=== PATIENT | female | born 1995 | race Caucasian/White ===

== ENCOUNTER → 2021-08-06 12:06 | Outpatient (REF) | payer BC, SELFPAY | LOC: ANHLAB 12:06 | PROVIDERS: PCP Family Medicine; Visit Provider Nurse Practitioner | DX: D49.2 Neoplasm of unspecified behavior of bone, soft tissue, and skin (principal) | CPT/HCPCS: 88305 ==

== ENCOUNTER 2021-09-16 15:02 | Emergency (ER) | payer BC, SELFPAY ==
--- NOTE | 2021-09-16 15:12 | ED.FEMALEGU ---
HPI - Female Genitourinary General Chief complaint: Urogenital-Female Stated complaint: uti complaint Time Seen by Provider: 09/16/21 15:15 Source: patient and RN notes reviewed Mode of arrival: ambulatory Limitations: no limitations History of Present Illness HPI Narrative: 26-year-old female presents to the [facility] with right lower back pain. States it started yesterday. Patient is concerned that she has a UTI. States that she was seen by her primary care doctor several months ago and on a routine urine check she had bacteria and was told she had a UTI. Related Data Home Medications Medication Instructions Recorded Confirmed norethindrone acetate 1 mg-ethinyl 1 tablet PO DAILY 05/01/21 09/16/21 estradiol 20 mcg tablet ergocalciferol (vitamin D2) 50 mcg 50 mcg PO DAILY 08/06/21 09/16/21 (2,000 unit) tablet Allergies Allergy/AdvReac Type Severity Reaction Status Date / Time amoxicillin Allergy Intermediate swollen Verified 09/16/21 15:24 face ampicillin Allergy Unknown swollen Verified 09/16/21 15:24 face Review of Systems Review of Systems: All systems reviewed & are unremarkable except as noted in HPI and below Constitutional: Constitutional: Reports no additional constitutional complaints, Denies chills and Denies fatigue Eyes: Eyes: Reports no additional eye complaints ENT: Reports system reviewed and no additional complaints, except as documented Cardiovascular: Cardiovascular: Reports no additional cardiovascular complaints and Denies chest pain Respiratory: Respiratory: Reports no additional respiratory complaints, Denies cough, Denies dyspnea and Denies wheezing Gastrointestinal: Gastrointestinal: Reports no additional gastrointestinal complaints, Denies abdominal pain, Denies nausea and Denies vomiting Genitourinary: Genitourinary: Reports no additional female genitourinary complaints, Denies nocturia, Denies dysuria, Denies flank pain and Denies urinary incontinence Musculoskeletal: Musculoskeletal: Reports as per HPI and Reports back pain (Right lower) Integumentary/Breasts: Skin/Breast: Reports system reviewed and no additional complaints, except as docu Neurologic: Reports system reviewed and no additional complaints, except as documented Psychiatric: Psychiatric: Reports no additional psychiatric complaints Allergic/Immunologic: Allergic/Immunologic: Reports no additional allergic/immunologic complaints PMFSH Past Medical History Medical History COVID-19 Social History Social History Smoking status: Never smoker Second hand tobacco smoke exposure: No Alcohol intake: current Drinks per week: 1 Substance use: never Substance use type: does not use Comments At the time of my signature, I reviewed and agree with the nursing past medical, surgical, social, and family history. There is no relevant family history pertinent to the patient complaint. Exam Const: General: healthy appearing, no acute distress and alert Nutritional Appearance: well nourished Orientation/consciousness: patient oriented x3 Limitations: no limitations HENMT: Head: normal to inspection Ears: external ears normal Eyes: Pupils: Equal, round and reactive pupils present Neck: Neck: normal visual inspection, no lymphadenopathy and no meningeal signs Chest: Chest palpation & inspection: normal inspection of the chest Resp: Effort & Inspection: normal respiratory effort Auscultation: clear to auscultation bilaterally Cardio: Rate: regular rate Rhythm: regular rhythm GI: GI Palp: Yes Soft to palpation, No Tenderness to palpation present (GI), No Guarding due to palpation present (GI) and No Rebound tenderness present : General: Yes no CVA tenderness Back/Spine/Pelvis: Back: no CVA tenderness Other: Pain is not reproducible with palpation of the lower back, hips, pelvis.
[2021-09-16 15:17] VITALS: BP 134/82; PULSE 77; RESP 18; TEMP 36.6; O2SAT 100
== END 2021-09-16 15:43 | disposition home or self-care (01) ==
PROVIDERS: Emergency Provider Nurse Practitioner; PCP Family Medicine
DX: M54.50 Low back pain, unspecified (principal); Z86.16 Personal history of COVID-19
CPT/HCPCS: 81003; 81025; 87086; 99213; G0463

== ENCOUNTER → 2023-10-16 07:43 | Outpatient (CLI) | payer BC, SELFPAY ==
--- NOTE | ~2023-10-16 | US_ITS ---
US breast RT limited INDICATION: Palpable right breast abnormality TECHNIQUE: Dedicated Limited right breast ultrasound COMPARISON: No prior studies for comparison. FINDINGS: The right breast is composed of normal heterogeneous echotexture without focal solid or cys tic mass. IMPRESSION: 1: Normal limited right breast ultrasound. BI-RADS CATEGORY 1 - NEGATIVE Reviewed, dictated and finalized at location A. 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
== END ==
PROVIDERS: PCP Family Medicine; Visit Provider Obstetrics & Gynecology Gynecology
DX: N63.10 Unspecified lump in the right breast, unspecified quadrant (principal)
CPT/HCPCS: 76642

== ENCOUNTER → 2023-12-01 14:15 | Outpatient (CLI) | payer BC, SELFPAY ==
--- NOTE | ~2023-12-01 | MM_ITS ---
EXAMINATION: MM diagnostic hiwot RT w noe HISTORY: Upper outer quadrant right breast lump at approximately T10-11 o'clock TECHNIQUE: ML, MLO and CC 3-D tomosynthesis images of the right breast were performed and synthetic 2 -D images were generated. CAD analysis was submitted and interpreted. COMPARISON: 10/16/2023 limited] quadrant right breast ultrasound examination BREAST PARENCHYMAL COMPOSITION: There are scattered areas of fibroglandular density. FINDINGS: No suspicious mass or architectural distortion, malignant calcification, skin thickening or retraction is detected. There is predominantly fatty tissue beneath the skin marker over the area o f clinical complaint of lump. IMPRESSION: 1. Negative examination; no mammographic evidence of malignancy 2. Routine annual mammographic screening beginning at age 40 is recommended unless there are earlier symptoms or physical findings BI-RADS Category 1: Negative Reviewed, dictated and finalized at location A. 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 Negative examination; no mammographic evidence of malignancy 2. Routine annual mammographic screening beginning at age 40 is recommended unl ess there are earlier symptoms or physical findings BI-RADS Category 1: Negative
== END ==
PROVIDERS: PCP Surgery; Visit Provider Surgery
DX: N63.11 Unspecified lump in the right breast, upper outer quadrant (principal)
CPT/HCPCS: 77061; 77065; G0279